=== PATIENT | male | born 1935 | race Caucasian/White ===

== ENCOUNTER 2020-02-25 08:29 | Inpatient (IN) | payer MEDICARE, OTHER ==
[~2020-02-25] VITALS: Ht 170.2 cm; Wt 70.3 kg
[2020-02-25] MEDS ORDERED: ASPIRIN 81 MG CHEW TAB PO ONE (08:45)
[2020-02-25 08:55] LABS: BASOPHILS % 0.1 % (0.0-1.0); EOSINOPHILS % 0.1 % (0.0-6.0); HEMATOCRIT 37.9 % (38.2-49.6); HEMOGLOBIN 12.1 g/dL (14.0-18.0); LYMPHOCYTES # (AUTO) 0.5 (1.0-3.2); LYMPHOCYTES % 5.5 % (18.0-39.1); MEAN CORPUSCULAR HEMOGLOBIN 28.3 pg (28-32); MEAN CORPUSCULAR HGB CONC 31.9 g/dL (31-35); MEAN CORPUSCULAR VOLUME 88.6 fL (81-99); MONOCYTES # (AUTO) 0.8 (0.2-0.8); MONOCYTES % 9.4 % (4.4-11.3); NEUTROPHILS # (AUTO) 7.5 (2.1-6.9); NEUTROPHILS % 84.1 % (38.7-80.0); PLATELET COUNT 231 x10e3/uL (140-360); RED BLOOD COUNT 4.28 x10e6/uL (4.3-5.7); RED CELL DISTRIBUTION WIDTH 16.6 % (11.7-14.4)
[2020-02-25 11:07] LABS: ALBUMIN 2.5 g/dL (3.5-5.0); ALBUMIN/GLOBULIN RATIO 0.6 (0.8-2.0); ANION GAP 19.2 mmol/L (8-16); CALCIUM 8.5 mg/dL (8.4-10.2); CREATININE, SERUM 1.3 mg/dL (0.72-1.25); POTASSIUM 3.2 mmol/L (3.5-5.1)
[2020-02-25 11:14] LABS: CREATINE KINASE MB 1.8 ng/mL (0-5.0)
[2020-02-25] MEDS ORDERED: AZITHROMYCIN 500MG/NS 250 ML 250 ML IV SCH (12:30)
[2020-02-25] MEDS ORDERED: ZINC PO (12:34)
[2020-02-25] MEDS ORDERED: ASPIRIN CHEW81 MG PO (12:34)
[2020-02-25] MEDS ORDERED: TYLENOL EXTRA500 MG PO (12:34)
[2020-02-25] MEDS ORDERED: ALPRAZOLAM1 MG PO (12:34)
[2020-02-25] MEDS ORDERED: NORCO 10-325 T1 EACH PO (12:34)
[2020-02-25] MEDS ORDERED: CHOLECALCIFEROL PO (12:34)
[2020-02-25] MEDS ORDERED: OMEPRAZOLE40 MG PO (12:34)
[2020-02-25] MEDS ORDERED: CALCIUM PO (12:34)
[2020-02-25] MEDS ORDERED: MAGNESIUM PO (12:34)
[2020-02-25] MEDS ORDERED: DEXAMETHASONE SOD PHOS 10 MG/1 ML VIAL IV SCH (13:00)
[2020-02-25] MEDS ORDERED: SODIUM CHLORIDE 0.9% 250ML 250 ML ONE (13:33)
[2020-02-25] MEDS ORDERED: ONDANSETRON HCL INJ 2MG/ML 2ML 2 MG/ML VIAL IV PRN (13:45)
[2020-02-25] MEDS ORDERED: CHLORASEPTIC SPRAY 177 ML BTL MM PRN (13:45)
[2020-02-25] MEDS ORDERED: DIPHENHYDRAMINE HCL 25 MG CAP PO PRN (13:45)
[2020-02-25] MEDS ORDERED: GUAIFENESIN/CODEINE 10 ML CUP PO PRN (13:45)
[2020-02-25] MEDS ORDERED: DEXTROSE 50% SYRINGE 50 ML IV PRN (13:45)
[2020-02-25] MEDS ORDERED: ACETAMINOPHEN 325 MG TAB PO PRN (13:45)
[2020-02-25] MEDS ORDERED: SIMETHICONE 80 MG CHEW PO PRN (13:45)
[2020-02-25] MEDS ORDERED: DOCUSATE SODIUM 100 MG CAP PO PRN (13:45)
[2020-02-25] MEDS ORDERED: BENZONATATE 100 MG CAP PO PRN (13:45)
[2020-02-25] MEDS ORDERED: CEFTRIAXONE SOD 2 GM/NS 100 ML 100 ML IV SCH (14:00)
[2020-02-25] MEDS ORDERED: REMDESIVIR 200MG/NS 100ML 200 MG IV ONE (14:30)
[2020-02-25] MEDS ORDERED: ENOXAPARIN INJ 80 MG/0.8 ML SYR SC SCH (17:00)
[2020-02-25] MEDS ORDERED: ENOXAPARIN 30 MG/0.3 ML SYR SC SCH (17:00)
[2020-02-25] MEDS ORDERED: ENOXAPARIN SOD INJ 40 MG/0.4 ML SYR SC SCH (17:00)
[2020-02-25] MEDS ORDERED: ASCORBIC ACID 500 MG TAB PO SCH (17:00)
[2020-02-26] MEDS ORDERED: ZINC SULFATE 220 MG CAP PO SCH (09:00)
[2020-02-26] MEDS ORDERED: ZINC SULFATE 50 MG CAP PO SCH (09:00)
[2020-02-26] MEDS ORDERED: REMDESIVIR 100MG/NS 100ML 100 MG IV SCH (15:00)
== END 2020-02-25 15:04 | disposition home health service (06) | DRG 871 ==
LOC: ER 08:33 → ERHOLD 11:36 → IMCU 12:15
PROVIDERS: ADMIT Internal Medicine; ATTEND Internal Medicine
PROC: 8E0ZXY6 Isolation (ICD-10-PCS; principal; 2020-02-25)
PROC: XW033E5 Introduction of Remdesivir Anti-infective into Peripheral Vein, Percutaneous Approach, New Technology Group 5 (ICD-10-PCS; 2020-02-25)
DX: A41.9 Sepsis, unspecified organism (principal); U07.1 COVID-19; J12.82 Pneumonia due to coronavirus disease 2019; J96.01 Acute respiratory failure with hypoxia; N17.9 Acute kidney failure, unspecified; E87.6 Hypokalemia; Z66 Do not resuscitate; E86.0 Dehydration
CPT/HCPCS: 36415; 71045; 80053; 82550; 82553; 84484; 85025; 99285; J0456; J0696; J1100; J7050; U0002